=== PATIENT | female | born 1995 | race Two or more races ===

== ENCOUNTER 2023-10-06 16:00 | Emergency (ER) | payer MEDICAID ==
[~2023-10-06] VITALS: Ht 152.4 cm; Wt 77.1 kg
[2023-10-06 16:00] VITALS: BP 135/88; TEMP 98.2; O2SAT 99
== END 2023-10-06 20:42 | disposition left against medical advice (07) ==
LOC: ER 16:11
DX: R00.2 Palpitations (principal); Z53.21 Procedure and treatment not carried out due to patient leaving prior to being seen by health care provider